=== PATIENT | male | born 1965 | race Caucasian/White ===

== ENCOUNTER → 2021-02-13 | Day surgery (SDC) | payer OTHER ==
[~2021-02-13] VITALS: Ht 167.6 cm; Wt 77.1 kg
[~2021-02-13] MED LIST: BUPIVACAINE HCL/PF 0.5% (5MG/ML) 10ML ONE; CEFAZOLIN SODIUM 1000MG/VIAL ONE; HYDROMORPHONE HCL/PF 2MG/ML (OR) ONE; HYDROMORPHONE HCL/PF 2MG/ML CPJ IV PRN; LABETALOL 5MG/ML SYR 20 MG/4 ML SYRINGE IV PRN; LACTATED RINGERS 1,000 ML IV SCH; MEPERIDINE HCL/PF 25MG/ML CPJ IV PRN; ONDANSETRON HCL 4MG/2ML INJ IV PRN; ONDANSETRON HCL 4MG/2ML INJ ONE; POLYMYXIN B SULFATE 500000 UNITS/VIAL ONE; SKIN ADHESIVE 0.7 GM EA TOP ONE
== END | disposition home or self-care (01) ==
LOC: OR 08:34
PROVIDERS: ATTEND Surgery
DX: K43.2 Incisional hernia without obstruction or gangrene (principal); D68.9 Coagulation defect, unspecified; Z79.899 Other long term (current) drug therapy; Z98.890 Other specified postprocedural states; Z20.822 Contact with and (suspected) exposure to COVID-19
CPT/HCPCS: 49565; 49568; 87426; C1781; J0690; J1170; J2405; J3490